=== PATIENT | male | born 1980 | race Two or more races ===

== ENCOUNTER 2023-11-12 23:09 | Emergency (ER) | payer OTHER, SELFPAY ==
[2023-11-12 23:11] VITALS: BP 122/66
[2023-11-12 23:15] VITALS: BP 122/66
[2023-11-12 23:24] VITALS: BMI 23.2
--- NOTE | 2023-11-12 23:30 | ED.GENMED ---
History of Present Illness
General
Chief Complaint: Skin Problem
Source: police
Exam Limitations: clinical condition
Time Seen by Provider: 11/12/23 23:14
Travel History
Have you had any contact with someone who has COVID-19?: No
Do you have any symptoms of coronavirus? Fever > 100 degrees, chills, cough, shortness of breath, sore throat, loss of taste or smell, muscle aches, or headache?: No
History of Present Illness
History of Present Illness:
Patient is a 43-year-old male brought by police for medical evaluation. Patient was refused [facility] because of his leg. Patient was apparently arrested on a warrant and [place] at about 1 PM today. According to the police patient
was awake alert and was ambulating some on this leg. They did not notice any mental status change until we pointed it out upon arrival. They deny that he would have had access to drugs. Patient states he is from [facility] but has been in
[place] for 2 years. The police think his drug of choice is fentanyl. Patient does not add any further history.
Past History
Past History
ED Past Medical History: Other (Unknown)
Review of Systems
Review of Systems
Unable to obtain full review of systems at this time due to: due to acuity
All Other Systems: Not applicable
Phy Exam
Physical Exam
Physical Exam:
GENERAL: Lethargic but will awaken and answer questions at times. No sign of scalp trauma. Very cachectic and thin. Malodorous
EYE: Orbits normal. Pinpoint pupils
NECK: Supple, nontender
ENT: Poor dentition
CARDIAC: Regular rate and rhythm without any obvious murmurs.
LUNGS: Clear breath sounds,normal
ABDOMEN: Soft, without focal tenderness or distention
NEUROLOGICAL: Alert and oriented , grossly non-focal. Alert and oriented x 3. Alert to the president.
SKIN: Warm and dry, chronic open wound of the right lower extremity with some surrounding erythema
MUSCULOSKELETAL: Significant edema and chronic deformity to the right lower extremity
PSYCH: Mildly lethargic but will awaken and answer questions
Course
Orders/Labs/Results
Orders:
Orders
11/12/23 23:26
Bedside Glucose- Treatment ONCE
Cardiac Monitoring- Treatment ONCE
IV Insert/Care/Rem.- Treatment PRN
0.9% Sodium Chloride 1000 ml [Nss] 1,000 ml IV BOLUS
Pulse Ox/cont/shift [RESP] Stat
Quantity: 1
11/13/23 00:13
Case Management Consult ONCE
Case Management Consult: Discharge Planning
Abnormal Lab Results
11/13/23
00:17
POC Glucose 135 H mg/dl
(70-99)
11/13/23 00:10
11/13/23 00:10
Vital Signs
Initial and Last Documented VS:
Initial Vital Signs
Temp Pulse Resp BP Pulse Ox
97.5 F 71 16 122/66 100
11/12/23 23:11 11/12/23 23:11 11/12/23 23:11 11/12/23 23:11 11/12/23 23:11
Last Documented Vital Signs
Temp Pulse Resp BP Pulse Ox
97.5 F 66 10 130/74 100
11/12/23 23:11 11/13/23 01:45 11/13/23 01:45 11/13/23 02:00 11/13/23 02:00
*Critical Care Note
Total Time (30-74mins, 75-104mins- exclusive of procedures): Not Applicable
Update Note
Update Note:
Patient rechecked. Lengthy conversation with the patient and with the police. Patient is mildly lethargic but will fully awaken and is alert oriented x 3. He knows the president knows the year and knows his name knows his location. He is
refusing medical care refusing an IV. He is fully aware of the risk that this leg could become septic he could lose his leg and he could . However he clearly would not be excepted at present in this condition. For this reason he will be
observed overnight we will ask case management involvement. If patient at some points decides he wants to leave he fully has that right. Also if he changes his mind about admission we will of course address this and treat him medically.
0145.... Patient has been observed for 2 and half hours and has remained medically stable. Vital signs are stable. Pulse ox is good. Patient is easily arousable and I discussed again his refusal for medical care. He is fully aware and repeated
back to me that he is understanding that his refusal could cause . Discussed with the nurse at the penitentiary. They are aware of his refusal and can observe him medically.
ED Attending Note
-
Portions of this chart may have been created with voice recognition software.� Occasional wrong word or��sound alike� substitutions may have occurred due to the inherent limitations of voice recognition software.
Discharge Plan
Departure
Patient Disposition: Half-Way
Date of Disposition: 11/13/23
Time of Disposition: 01:47
Discharge Problem:
Chronic wound/cellulitis right lower ext, Suspected opioid drug use
Instructions: Wound Care (DC), Opioid use disorder
Referrals:
UNKNOWN - PT DOES,NOT KNOW [Family Provider] -
Activity Restrictions/Additional Instructions:
You should be admitted to the hospital for IV antibiotics and further care of your right leg wound.
As we discussed, this could cause loss of limb or loss of life if you continue to refuse care
Patient should be observed overnight in the medical unit because of his likely opioid use prior to incarceration
If he changes his mind about further care and willingness to have an IV placed, please have him return to the ER for further care
Interventions
Interventions:
*Risk Screen - Suicide Last Done: 11/12/23 23:11
*General Assessment Last Done: 11/12/23 23:11
*Neglect/Abuse Screening Last Done: 11/12/23 23:11
*ED COVID-19 Vaccine History Last Done: 11/12/23 23:11
*Nursing Disposition Last Done: 11/13/23 02:13
ED-Skin Assessment Last Done: 11/12/23 23:21
Discharge Date and Time
Discharge Date/Time: 11/13/23 02:14
Print Language: SUDANESE
[2023-11-13 00:09] VITALS: BP 130/79
[2023-11-13 00:18] LABS: Glucose - Point of Care 135 mg/dl (70-99)
--- NOTE | 2023-11-13 00:48 | WOUNDNOTE ---
right leg
right foot
[2023-11-13 01:00] VITALS: BP 119/72
[2023-11-13 01:26] VITALS: BP 119/72
[2023-11-13 02:00] VITALS: BP 130/74
== END 2023-11-13 02:14 ==
LOC: EMR 23:09
PROVIDERS: EMERGENCY PHYSICIAN Emergency Medicine
DX: S81.801A Unspecified open wound, right lower leg, initial encounter (principal); L03.115 Cellulitis of right lower limb; X58.XXXA Exposure to other specified factors, initial encounter; Z65.3 Problems related to other legal circumstances
CPT/HCPCS: 99283; 82962